=== PATIENT | male | born 1960 | race American Indian/Alaskan Native ===

== ENCOUNTER 2016-10-27 08:52 | Day surgery (SDC) | payer OTHER ==
[2016-10-27 09:19] VITALS: BMI 28.8
[2016-10-27] MEDS ORDERED: Sodium Chloride 0.9% 500 ML IV ONE ×2 (11:29)
[2016-10-27] MEDS ORDERED: Propofol 10 mg/ml Inj (20 ML) ONE (11:30)
[2016-10-27 12:39] VITALS: RESP 15; TEMP 97.3; O2SAT 100
[2016-10-27 12:50] VITALS: BP 124/78; PULSE 61
== END 2016-10-27 12:49 | disposition home or self-care (01) ==
LOC: C.ENDO 08:52
PROVIDERS: ATTEND Internal Medicine Gastroenterology
DX: D12.2 Benign neoplasm of ascending colon (principal); D12.5 Benign neoplasm of sigmoid colon; K64.8 Other hemorrhoids; D12.4 Benign neoplasm of descending colon
CPT/HCPCS: 45388; 88305; J2704; J7040